=== PATIENT | male | born 1955 | race Caucasian/White ===

== ENCOUNTER 2025-02-06 10:21 | Inpatient (IN) ==
[2025-02-02 11:03] LABS: Basophils # (Auto) 0.02 K/mcL (0.00-0.30); Basophils % (Auto) 0.4 % (0.0-2.0); Eosinophils # (Auto) 0.03 K/mcL (0.00-0.70); Eosinophils % (Auto) 0.7 % (0.0-7.0); Hematocrit 44.8 % (40.1-51.0); Hemoglobin 15.5 g/dL (13.7-17.5); Lymphocytes # (Auto) 1.54 K/mcL (1.50-4.80); Lymphocytes % (Auto) 33.5 % (15.5-49.0); Mean Cell Volume 94.3 fL (80.0-100.0); Mean Corpuscular HGB Conc 34.6 g/dL (31.0-36.0); Mean Platelet Volume 10.6 fL (8.8-12.5); Monocytes # (Auto) 0.53 K/mcL (0.10-0.90); Monocytes % (Auto) 11.5 % (1.0-12.0); Neutrophils % (Auto) 53.9 % (38.0-78.0); Platelet Count 188 K/mcL (140-440); RBC 4.75 M/mcL (4.63-6.08); Red Cell Distribution Width 13.1 % (11.5-14.5); WBC 4.6 K/mcL (4.5-11.0)
[2025-02-02 11:28] LABS: Blood Urea Nitrogen 32 mg/dL (8-23); Calcium 9.6 mg/dL (8.6-10.4); Carbon Dioxide 22 mmol/L (22-30); Chloride 106 mmol/L (96-108); Glomerular Filtration Rate 40; Glucose 102 mg/dL (70-105); Potassium 4.3 mmol/L (3.3-5.1); Sodium 138 mmol/L (133-145)
[2025-02-06] MEDS ORDERED: PROPOFOL 200 MG/20 ML VIAL IV ONE (10:40)
[2025-02-06] MEDS ORDERED: DEXAMETHASONE 10 MG/ML VIAL ONE (10:40)
[2025-02-06] MEDS ORDERED: fentaNYL 100 MCG/2 ML VIAL ONE ×3 (10:40→12:53)
[2025-02-06] MEDS ORDERED: ONDANSETRON 4 MG/2 ML VIAL ONE (10:40)
[2025-02-06] MEDS ORDERED: LIDOCAINE 2% PF 5 ML VIAL ONE (10:40)
[2025-02-06] MEDS ORDERED: KETAMINE 50 MG/ML Syringe IV ONE (10:40)
[2025-02-06] MEDS ORDERED: MAGNESIUM SULFATE 2 GM/50 ML BAG IV ONE (10:40)
[2025-02-06] MEDS ORDERED: SUCCINYLCHOLINE 200 MG/10 ML VIAL IV ONE (10:40)
[2025-02-06] MEDS ORDERED: GLYCOPYRROLATE 0.2 MG/ML VIAL IV ONE (12:02)
[2025-02-06] MEDS: LIDOCAINE W/EPI 1% 20 ML VIAL IJ ONE (12:12)
[2025-02-06] MEDS ORDERED: HYDROmorphone 0.5 MG/0.5 ML SYRINGE ONE (12:16)
[2025-02-06] MEDS ORDERED: PHENYLephrine 1 MG/10 ML SYRINGE (ANEST) ONE (12:30)
[2025-02-06] MEDS ORDERED: LACTATED RINGERS 250 ML IV PRN (13:19)
[2025-02-06] MEDS ORDERED: ONDANSETRON 4 MG/2 ML VIAL IV PRN ×2 (13:19→14:50)
[2025-02-06] MEDS ORDERED: fentaNYL 100 MCG/2 ML VIAL IV PRN (13:19)
[2025-02-06] MEDS ORDERED: diphenhydrAMINE 50 MG/ML VIAL IV PRN (13:19)
[2025-02-06] MEDS ORDERED: NALOXONE HCL 0.4 MG/ML VIAL IV PRN (13:19)
[2025-02-06] MEDS ORDERED: IPRATROPIUM/ALBUTEROL 3 ML AMPUL.NEB NEB PRN ×2 (13:19→14:50)
[2025-02-06] MEDS ORDERED: MEPERIDINE 25 MG/ML VIAL IV PRN (13:19)
[2025-02-06] MEDS: ACETAMINOPHEN 1,000 MG/100 ML BAG IV ONE (13:49)
[2025-02-06] MEDS ORDERED: SENNOSIDES 1 TABLET PO PRN (14:50)
[2025-02-06] MEDS ORDERED: ONDANSETRON 4 MG ODT TABLET SL PRN (14:50)
[2025-02-06] MEDS ORDERED: morphine 2 MG/ML VIAL IV PRN (14:50)
[2025-02-06] MEDS ORDERED: LACTULOSE 20 GM/30 ML ORAL.SOL PO PRN (14:50)
[2025-02-06] MEDS: LACTATED RINGERS 1,000 ML IV SCH (15:12)
[2025-02-06] MEDS: ACETAMINOPHEN 325 MG TABLET PO PRN (19:15)
[2025-02-06] MEDS: ATORVASTATIN 10 MG TABLET PO SCH (20:30)
[2025-02-06] MEDS: FAMOTIDINE 20 MG TABLET PO SCH (20:31)
[2025-02-06] MEDS: MULTIVIT,THER IRON,CA,FA & MIN 1 TABLET PO SCH (20:31)
[2025-02-06] MEDS: TAMSULOSIN 0.4 MG CAPSULE PO SCH (20:31)
[2025-02-06] MEDS: DOCUSATE SODIUM 100 MG CAPSULE PO SCH (20:32)
[2025-02-06] MEDS: MIRABEGRON 25 MG TAB.ER.24H PO SCH (20:32)
[2025-02-06] MEDS: BACITRACIN ZINC PKT 1 PACKET PACKET TOPICAL SCH (20:33)
[2025-02-06] MEDS: 0.9 % SODIUM CHLORIDE 10 ML SYRINGE IV SCH (20:33)
[2025-02-06] MEDS: BENZOCAINE/MENTHOL 1 LOZENGE PO PRN (20:40)
[2025-02-06] MEDS ORDERED: NON FORMULARY MEDICATION 1 DOSE MISCELL (Rosuvastatin 5 mg tablet) PO SCH (21:00)
[2025-02-06] MEDS ORDERED: MIRABEGRON 25 MG TAB.ER.24H PO SCH (21:00)
[2025-02-06] MEDS ORDERED: TAMSULOSIN 0.4 MG CAPSULE PO SCH (21:00)
[2025-02-07] MEDS: HYDROcodone/APAP 5/325MG TABLET PO PRN (03:02)
[2025-02-07 06:04] VITALS: O2SAT 96
[2025-02-07 06:31] LABS: Basophils # (Auto) 0.01 K/mcL (0.00-0.30); Basophils % (Auto) 0.1 % (0.0-2.0); Eosinophils # (Auto) 0 K/mcL (0.00-0.70); Eosinophils % (Auto) 0 % (0.0-7.0); Hematocrit 42.5 % (40.1-51.0); Hemoglobin 14.3 g/dL (13.7-17.5); Lymphocytes # (Auto) 1.21 K/mcL (1.50-4.80); Lymphocytes % (Auto) 12.2 % (15.5-49.0); Mean Corpuscular HGB Conc 33.6 g/dL (31.0-36.0); Mean Platelet Volume 10.6 fL (8.8-12.5); Monocytes # (Auto) 0.76 K/mcL (0.10-0.90); Monocytes % (Auto) 7.7 % (1.0-12.0); Neutrophils % (Auto) 79.8 % (38.0-78.0); Platelet Count 191 K/mcL (140-440); RBC 4.38 M/mcL (4.63-6.08); Red Cell Distribution Width 13.3 % (11.5-14.5); WBC 9.9 K/mcL (4.5-11.0)
[2025-02-07 06:40] LABS: ALT/SGPT 22 U/L (<40); AST/SGOT 19 U/L (<40); Albumin/Globulin Ratio 1.5 (1.0-2.3); Alkaline Phosphatase 61 U/L (39-117); Bilirubin,Total 0.5 mg/dL (0.1-1.0); Blood Urea Nitrogen 22 mg/dL (8-23); Calcium 9.4 mg/dL (8.6-10.4); Carbon Dioxide 23 mmol/L (22-30); Chloride 104 mmol/L (96-108); Globulin 2.7 gm/dL (2.2-3.7); Glomerular Filtration Rate 50; Glucose 132 mg/dL (70-105); Potassium 5.1 mmol/L (3.3-5.1); Sodium 138 mmol/L (133-145)
[2025-02-07 08:08] VITALS: TEMP 98.4
[2025-02-07] MEDS: amLODIPine 5 MG TABLET PO SCH (08:56)
[2025-02-07] MEDS: EMTRICITABINE PO SCH (08:58)
[2025-02-07] MEDS: BICTEGRAVIR PO SCH (08:58)
[2025-02-07] MEDS: TENOFOVIR ALAFENAMIDE PO SCH (08:58)
[2025-02-07] MEDS ORDERED: TAMSULOSIN 0.4 MG CAPSULE PO SCH (09:00)
[2025-02-07] MEDS ORDERED: MIRABEGRON 25 MG TAB.ER.24H PO SCH (09:00)
[2025-02-07] MEDS ORDERED: MULTIVIT,THER IRON,CA,FA & MIN 1 TABLET PO SCH (09:00)
== END 2025-02-07 10:00 | disposition home or self-care (01) | DRG 141 ==
LOC: SUR 10:21 → ICU 14:40
PROVIDERS: ADMIT Internal Medicine; ATTEND Internal Medicine